=== PATIENT | male | born 1970 | race Caucasian/White ===

== ENCOUNTER 2019-08-17 13:22 | Inpatient (IN) | payer OTHER ==
[~2019-08-17] VITALS: Ht 180.3 cm; Wt 73.5 kg
[~2019-08-17 13:22] MED LIST: AMOXIL500 MG PO; CLARITIN10 MG PO; FLONASE 0.05% 121 EA NAS; NAPROSYN500 MG PO; TRAMADOL HCL50 MG PO; ZANTAC150 MG PO; ZITHROMAX Z PA250 MG PO
[2019-08-17 13:32] VITALS: BP 174/106
[2019-08-17 14:21] VITALS: BP 154/98
[2019-08-17 14:39] LABS: HEMATOCRIT 41.5 % (42.0-52.0); HEMOGLOBIN 14.3 g/dl (14.0-18.0); MEAN CELL VOLUME 92.2 fl (80.0-94.0); MEAN CORPUSCULAR HGB 31.8 pg (27.0-31.0); MEAN CORPUSCULAR HGB CONC 34.5 g/dl (33.0-37.0); PLATELET COUNT AUTOMATED 132 10*3/uL (130-400); RED CELL DISTRI WIDTH 11.9 % (0-14.5); WHITE BLOOD COUNT 5.3 10*3/uL (4.8-10.8)
[2019-08-17 14:50] LABS: ACT PARTIAL THROMBO TIME 28.8 SECONDS (20.0-32.1); INTERNATIONAL NORM RATIO 0.9 (2.0-3.5)
[2019-08-17 14:51] VITALS: BP 134/95
--- NOTE | 2019-08-17 15:03 | NUR ---
NOTIFED BY LAB PT HAS LACTIC ACID OF 4.0, CHAGO ARORA NOTIFED.
[2019-08-17 15:11] LABS: ALBUMIN 2.9 gm/dl (3.1-4.5); ALKALINE PHOSPHATASE 81 U/L (45-117); BUN 10 mg/dl (7-24); CHLORIDE 89 mmol/L (98-107); POTASSIUM 2.9 mmol/L (3.5-5.1); SGOT/AST 253 IU/L (3-35); SGPT/ALT 110 U/L (12-78); SODIUM 131 mmol/L (136-145); TOTAL PROTEIN 7.3 gm/dL (6.4-8.2)
[2019-08-17 15:14] LABS: TROPONIN I < 0.015 ng/ml (<0.045)
[2019-08-17 15:15] LABS: TOTAL CELLS COUNTED 100 #CELLS
[2019-08-17 15:16] LABS: PLATELET SUFFICIENCY NORMAL (NORMAL)
--- NOTE | 2019-08-17 18:00 | NUR ---
A 49, admitted to , under the services of NICK Pate DO with a diagnosis of copd, pneumonitis,kypokalemia. Chief complaint is cough sob. Patient arrived via bed from ER. Monitor applied. Initial assessment completed. Vital signs taken and recorded. NICK PATE DO notified of admission to the unit. Orders received. See assessment for past medical history, medications and allergies. Patient and/or family oriented to unit. [facility] visitation policy reviewed. Clothing/patient valuable form completed. MARLENA ALFREDO
--- NOTE | 2019-08-17 18:14 | NUR ---
NOTIFIED OF CONSULT NNO
[2019-08-17] MEDS ORDERED: LISINOPRIL20 MG PO (18:16)
[2019-08-17] MEDS ORDERED: DIVALPROEX SOD500 M1 PO (18:16)
[2019-08-17] MEDS ORDERED: OMEPRAZOLE MAGN20 MG PO (18:16)
[2019-08-17] MEDS ORDERED: VITAMIN D5000 UNIT PO (18:16)
[2019-08-17 20:00] VITALS: BP 168/93
--- NOTE | 2019-08-17 21:11 | NUR ---
PT REFUSED TREATMENT AND FLUTTER. PT STATED THE TREATMENTS WOULD MAKE HIM COUGH MORE CAUSING SOB. EXPLAINED TO PT THE TX. WOULD HELP TO OPEN HIS LUNGS AND DECREASE WOB. EXPLAINED COUGHING IS A NORMAL REATION. PT STILL DECLINED TREATMENT.
--- NOTE | 2019-08-17 22:26 | NUR ---
PT STATES THAT HIS RIBS ARE HURTING ESPECIALLY WHEN HE COUGHS. HE RATES THE PAIN A 8/10. PRN NORCO PO IS GIVEN AT THIS TIME. WILL CONTINUE TO MONITOR THE PATIENT. CALL LIGHT WITHIN REACH
--- NOTE | 2019-08-17 22:31 | NUR ---
PT STATES THAT HIS STOMACH IS UPSET AND IS NAUSOUS. IV ZOFRAN IS GIVEN AT THIS TIME. WILL CONTINUE TO MONITOR THE PATIENT
--- NOTE | 2019-08-17 23:17 | NUR ---
CALLED DR BARKER TO TELL HER THAT THE PATIENT IS WANTING COUGH DROPS, SHE WILL PUT THE ORDER IN NOW
--- NOTE | 2019-08-17 23:28 | NUR ---
IN TO PATIENTS ROOM TO SEE IF THE ZOFRAN HAS WORKED OR NOT. PT STATES HE IS IN PAIN FROM COUGHING SO HE IS NOT SURE IF HE IS JUST IN PAIN OR JUST NAUSEOUS. WILL CONTINUE TO MONITOR
--- NOTE | 2019-08-17 23:45 | NUR ---
PUBLIC RELATIONS DIRECTOR CALLED AND SAID THAT [facility] IS NOT AVAILABLE THAT IF THEY WANT TO RE-ORDER IT TO NO EXTENDED RELEASE I WILL BE ABLE TO CALL [facility]. CALLED DR BARKER AT THIS TIME AND RELAYED THE MESSAGE, SHE WILL PUT A NEW ORDER IN
--- NOTE | 2019-08-17 23:52 | NUR ---
CALLED [facility] PER DR MICHEL WISHES TO SEE WHAT THE DOSING WOULD BE FOR REGULAR DEPAKOTE INSTEAD OF THE EXTENDED RELEASE. HE STATES THAT THE 500 MG CAPSULE THAT WE HAVE IN THE PIXIS HERE WILL BE EQUAL TO THE 500 ER. HE STATES THAT A 750 ER = 625 REGULAR SO JUST GIVE THE 500 MC CAPSULE. WILL CALL DR BARKER NOW TO UPDATE HER
[2019-08-18] VITALS: BP 157/97
--- NOTE | 2019-08-18 01:51 | NUR ---
24 HR chart check completed.
--- NOTE | 2019-08-18 04:41 | NUR ---
Patient sleeping. Respirations relaxed and easy. Siderails up . [place] on. ELVA HUGHES
[2019-08-18 06:20] VITALS: BP 113/61
[2019-08-18 07:07] LABS: ALBUMIN 2.3 gm/dl (3.1-4.5); ALKALINE PHOSPHATASE 62 U/L (45-117); BUN 5 mg/dl (7-24); CHLORIDE 101 mmol/L (98-107); CREATININE 0.52 mg/dL (0.70-1.30); HEMATOCRIT 33.4 % (42.0-52.0); HEMOGLOBIN 11.3 g/dl (14.0-18.0); MEAN CELL VOLUME 93.6 fl (80.0-94.0); MEAN CORPUSCULAR HGB 31.7 pg (27.0-31.0); MEAN CORPUSCULAR HGB CONC 33.8 g/dl (33.0-37.0); MEAN PLATELET VOLUME 10.5 fl (9.6-12.3); PHOSPHOROUS 2.6 mg/dL (2.5-4.9); PLATELET COUNT AUTOMATED 105 10*3/uL (130-400); POTASSIUM 3.3 mmol/L (3.5-5.1); RED BLOOD COUNT 3.57 10*6/uL (4.50-5.90); RED CELL DISTRI WIDTH 12.1 % (0-14.5); SGOT/AST 165 IU/L (3-35); SGPT/ALT 76 U/L (12-78); SODIUM 136 mmol/L (136-145); TOTAL PROTEIN 6.1 gm/dL (6.4-8.2); WHITE BLOOD COUNT 5.8 10*3/uL (4.8-10.8)
[2019-08-18 08:04] LABS: TOTAL CELLS COUNTED 100 #CELLS
[2019-08-18 08:05] LABS: PLATELET SUFFICIENCY LOW (NORMAL)
--- NOTE | 2019-08-18 09:00 | NUR ---
Forest Fire Management Officer in to talk to patient. Patient states lives at home with agustin. There are few steps in the home. Physician: cait kurtz Pharmacy: mail Home health services: none Patient's level of ADLs: MINIMAL ASSIST Patient has working utilities: all working DME: cane Follow-up physician's appointment after d/c: will be made by hospitalist nurse director upon discharge Does patient want to access PORTAL?: no Discharge plan discussed with patient, he lives at home. is independent in adls and ambulation with a cane, he states he will return home when medically stable and at this time denies any home needs, case management will follow. JES KEARNS
[2019-08-18 12:00] VITALS: BP 126/83
[2019-08-18 16:00] VITALS: BP 116/82
--- NOTE | 2019-08-18 19:23 | NUR ---
NOTIFIED OF + FLU A RESULTS.
--- NOTE | 2019-08-18 19:40 | NUR ---
PATIENT MOVED TO PRIVATE ROOM AT THIS TIME DUE TO FLU A+ RESULTS.
[2019-08-18 20:00] VITALS: BP 132/98
--- NOTE | 2019-08-18 20:30 | NUR ---
PATIENT ASSESSMENT COMPLETED AT THIS TIME WITHOUT INCIDENT. PATIENT DENIES ANY CHEST PAIN/PRESSURE AT THIS TIME, SPO2 [phone]% ON ROOM AIR PATIENT PLACED ON NC 2LPM SPO2 [id number]%. WILL CONTINUE TO MONITOR. CALL LIGHT WITHIN REACH.
[2019-08-19] VITALS: BP 123/87
--- NOTE | 2019-08-19 01:53 | NUR ---
24 HOUR CHART CHECK COMPLETED
[2019-08-19 08:00] VITALS: BP 152/101
--- NOTE | 2019-08-19 09:00 | NUR ---
case management visits with patient, no voiced needs at this time, case management will follow
[2019-08-19 12:00] VITALS: BP 153/98
[2019-08-19 16:00] VITALS: BP 153/96
--- NOTE | 2019-08-19 17:25 | NUR ---
Medicated with cepacol per prn order for complaints of sore throat.
[2019-08-19 20:00] VITALS: BP 142/90
[2019-08-20] VITALS: BP 159/84
--- NOTE | 2019-08-20 02:59 | NUR ---
24 HOUR CHART CHECK COMPLETED
[2019-08-20 07:50] LABS: HEMOGLOBIN 11.7 g/dl (14.0-18.0); MEAN CELL VOLUME 94.9 fl (80.0-94.0); MEAN CORPUSCULAR HGB 31.7 pg (27.0-31.0); MEAN CORPUSCULAR HGB CONC 33.4 g/dl (33.0-37.0); MEAN PLATELET VOLUME 11.4 fl (9.6-12.3); PLATELET COUNT AUTOMATED 132 10*3/uL (130-400); RED BLOOD COUNT 3.69 10*6/uL (4.50-5.90); RED CELL DISTRI WIDTH 12.2 % (0-14.5); WHITE BLOOD COUNT 4.7 10*3/uL (4.8-10.8)
[2019-08-20 08:00] VITALS: BP 158/99
[2019-08-20 08:06] LABS: ALBUMIN 2.2 gm/dl (3.1-4.5); ALKALINE PHOSPHATASE 63 U/L (45-117); BUN 11 mg/dl (7-24); CHLORIDE 102 mmol/L (98-107); CREATININE 0.55 mg/dL (0.70-1.30); POTASSIUM 2.9 mmol/L (3.5-5.1); SGOT/AST 150 IU/L (3-35); SGPT/ALT 95 U/L (12-78); SODIUM 140 mmol/L (136-145); TOTAL PROTEIN 6.3 gm/dL (6.4-8.2)
--- NOTE | 2019-08-20 09:01 | NUR ---
Medicated with norco per prn order for complaints of pain from coughing to back and chest. Cepacol given per prn order for complaints of sore throat.
[2019-08-20 09:02] LABS: ATYPICAL LYMPHS 3 % (0-0); PLATELET SUFFICIENCY NORMAL (NORMAL); TOTAL CELLS COUNTED 100 #CELLS
--- NOTE | 2019-08-20 10:00 | NUR ---
States that medications helped relieve pain and sore throat.
[2019-08-20 12:00] VITALS: BP 162/87
--- NOTE | 2019-08-20 14:19 | NUR ---
Medicated with norco per prn order for complaints of pain due to coughing. States pain is located in back and ribs.
--- NOTE | 2019-08-20 15:10 | NUR ---
States that norco helped to relieve pain somewhat.
[2019-08-20 16:00] VITALS: BP 152/97
[2019-08-20 20:00] VITALS: BP 172/94
[2019-08-21] VITALS: BP 170/100
--- NOTE | 2019-08-21 | NUR ---
DR. RIVER NOTIFIED OF B/P OF 170/100. NEW ORDER FOR HYDRALAZINE 2MG IV X1.
--- NOTE | 2019-08-21 00:06 | NUR ---
PATIENT MEDICATED WITH HYDRALAZINE 2MG IV. WILL CONTINUE TO MONITOR.
--- NOTE | 2019-08-21 02:06 | NUR ---
PATIENT MEDICATED WITH NORCO FOR COMPLAINTS OF MUSCLE ACHES AND PAIN. WILL CONTINUE TO MONITOR. CALL LIGHT IN REACH.
[2019-08-21 02:48] VITALS: BP 162/94
[2019-08-21 03:37] VITALS: BP 130/90
--- NOTE | 2019-08-21 07:30 | NUR ---
PT RESTING IN BED AT THIS TIME. VOICES NO CONCERNS. NO S/S OF DISTRESS NOTED. OXYGEN 2L VIA NASAL CANNULA INTACT. WHITE BOARD UPDATED. CALL LIGHT WITHIN REACH. RESPS EASY AND NON LABORED
--- NOTE | 2019-08-21 07:43 | NUR ---
PT COMPLAINS OF GENERALIZED "ALL OVER" ACHING 5/10 PAIN. MEDICATED PER ORDER . WILL MONITOR FOR RELIEF. VOICES NO OTHER CONCERNS AT THIS TIME. RESTING IN BED. CALL LIGHT WITHIN REACH.
[2019-08-21 08:00] VITALS: BP 140/92
[2019-08-21 08:01] LABS: BUN 14 mg/dl (7-24); CHLORIDE 103 mmol/L (98-107); CREATININE 0.55 mg/dL (0.70-1.30); POTASSIUM 3.5 mmol/L (3.5-5.1); SODIUM 136 mmol/L (136-145)
--- NOTE | 2019-08-21 08:43 | NUR ---
NORCO EFFECTIVE PER PT
--- NOTE | 2019-08-21 11:16 | NUR ---
Shift chart check completed.
[2019-08-21 12:00] VITALS: BP 157/96
[2019-08-21] MEDS ORDERED: TAMIFLU 75MG CA75 MG PO (12:47)
[2019-08-21] MEDS ORDERED: Zestril,Prinivi40 MG PO (12:47)
[2019-08-21] MEDS ORDERED: PANTOPRAZOLE SO40 MG PO (12:47)
[2019-08-21] MEDS ORDERED: MUCINEX ER600 MG PO (12:47)
--- NOTE | 2019-08-21 13:58 | NUR ---
Discharge instructions reviewed with patient/family. Patient receptive and verbalizes understanding. Follow-up care arranged. Written instructions given to patient/family. HISSOM,YVETTE The Discharge Plan/Instructions have been completed.
[2019-08-23 00:03] LABS: ADENOVIRUS Negative (Negative); INFLUENZA B Negative (Negative); METAPNEUMOVIRUS Negative (Negative); PARAINFLUENZA 1 Negative (Negative); PARAINFLUENZA 2 Negative (Negative); PARAINFLUENZA 3 Negative (Negative); RHINOVIRUS Negative (Negative); RSV A Negative (Negative); RSV B Negative (Negative)
[2019-08-24 17:07] LABS: INFLUENZA A Positive (Negative)
== END 2019-08-21 14:00 | disposition home or self-care (01) | DRG 871 ==
LOC: ED 13:22 → EDHOLD 16:28 → 4E 16:28
PROVIDERS: Emergency Medicine; Internal Medicine; Internal Medicine Critical Care Medicine; Student in an Organized Health Care Education/Training Program; ADMIT Internal Medicine
DX: A41.9 Sepsis, unspecified organism (principal); J18.9 Pneumonia, unspecified organism; E43 Unspecified severe protein-calorie malnutrition; J44.1 Chronic obstructive pulmonary disease with (acute) exacerbation; J44.0 Chronic obstructive pulmonary disease with (acute) lower respiratory infection; R65.20 Severe sepsis without septic shock; F10.10 Alcohol abuse, uncomplicated; R73.9 Hyperglycemia, unspecified; J20.9 Acute bronchitis, unspecified; E87.6 Hypokalemia; E83.41 Hypermagnesemia; I10 Essential (primary) hypertension; E78.5 Hyperlipidemia, unspecified; D64.9 Anemia, unspecified; G43.909 Migraine, unspecified, not intractable, without status migrainosus; D69.6 Thrombocytopenia, unspecified; F17.210 Nicotine dependence, cigarettes, uncomplicated; F12.10 Cannabis abuse, uncomplicated; K21.9 Gastro-esophageal reflux disease without esophagitis; J09.X2 Influenza due to identified novel influenza A virus with other respiratory manifestations; Z71.6 Tobacco abuse counseling; Z68.22 Body mass index [BMI] 22.0-22.9, adult; Z86.73 Personal history of transient ischemic attack (TIA), and cerebral infarction without residual deficits; Z80.0 Family history of malignant neoplasm of digestive organs

== ENCOUNTER 2020-10-23 20:49 | Emergency (ER) | payer OTHER ==
[~2020-10-23] VITALS: Ht 182.8 cm; Wt 68.0 kg
[~2020-10-23 20:49] MED LIST changes: +DIVALPROEX SOD500 M1 PO; +LISINOPRIL20 MG PO; +MUCINEX ER600 MG PO; +OMEPRAZOLE MAGN20 MG PO; +PANTOPRAZOLE SO40 MG PO; +TAMIFLU 75MG CA75 MG PO; +VITAMIN D5000 UNIT PO; +Zestril,Prinivi40 MG PO
[2020-10-23] MEDS ORDERED: OMEPRAZOLE MAGN20 MG PO (21:00)
[2020-10-23] MEDS ORDERED: LISINOPRIL20 MG PO (21:00)
[2020-10-23] MEDS ORDERED: VITAMIN D3125 MC1 PO (21:00)
[2020-10-23 21:40] LABS: BASO % 1.4 % (0.0-1.0); EOS # 0.1 10*3/uL (0.0-0.4); EOS % 3.4 % (1.0-4.0); HEMATOCRIT 34.6 % (42.0-52.0); LYMPH # 1.2 10*3/uL (1.3-4.4); LYMPH % 38.9 % (27.0-41.0); MEAN CELL VOLUME 75.1 fl (80.0-94.0); MEAN CORPUSCULAR HGB 21.9 pg (27.0-31.0); MEAN CORPUSCULAR HGB CONC 29.2 g/dl (33.0-37.0); MEAN PLATELET VOLUME 10.7 fl (9.6-12.3); MONO # 0.3 10*3/uL (0.1-1.0); MONO % 11.5 % (3.0-9.0); NEUT # 1.3 10*3/uL (2.3-7.9); NEUT % 44.8 % (47.0-73.0); PLATELET COUNT AUTOMATED 127 10*3/uL (130-400); RED BLOOD COUNT 4.61 10*6/uL (4.50-5.90)
[2020-10-23 21:43] LABS: ALBUMIN 3.4 gm/dl (3.1-4.5); ALKALINE PHOSPHATASE 115 U/L (45-117); BUN 6 mg/dl (7-24); CHLORIDE 104 mmol/L (98-107); CREATININE 0.53 mg/dL (0.70-1.30); POTASSIUM 4.1 mmol/L (3.5-5.1); SGOT/AST 186 IU/L (3-35); SGPT/ALT 87 U/L (12-78); SODIUM 137 mmol/L (136-145); TOTAL PROTEIN 7.9 gm/dL (6.4-8.2)
[2020-10-23 23:23] LABS: BILIRUBIN Negative (Negative); BLOOD 2+ (Negative); CLARITY Clear (Clear); COLOR Yellow (Yellow); GLUCOSE Negative (Negative); KETONE Negative (Negative); LEUKO ESTERASE Negative (Negative); NITRITE Negative (Negative); PH 5.5 (4.5-8.0); SPECIFIC GRAVITY <= 1.005 (1.001-1.030); UROBILINOGEN 0.2 E.U./dl (0.0-1.0)
[2020-10-23 23:32] LABS: URINE AMPHETAMINES < 1000 (1000ng/ml); URINE BARBITURATES < 200 (200ng/ml); URINE BENZODIAZEPINES < 200 (200ng/ml); URINE CANNABINOIDS (THC) > 50 (50ng/ml); URINE COCAINE < 300 (300ng/ml); URINE METHADONE < 300 (300ng/ml); URINE OPIATES < 300 (300ng/ml)
[2020-10-23 23:37] LABS: URINE PHENCYCLIDINE < 25 (25ng/ml)
[2020-10-23 23:38] LABS: RBC 16-20 rbc/hpf (0-2)
== END 2020-10-24 08:28 | disposition home or self-care (01) ==
LOC: ED 20:49
PROVIDERS: Internal Medicine
DX: F10.129 Alcohol abuse with intoxication, unspecified (principal); F17.200 Nicotine dependence, unspecified, uncomplicated; Z79.899 Other long term (current) drug therapy; Y90.8 Blood alcohol level of 240 mg/100 ml or more

== ENCOUNTER 2020-12-18 16:20 | Emergency (ER) | payer OTHER ==
[~2020-12-18] VITALS: Ht 180.3 cm; Wt 74.8 kg
[~2020-12-18 16:20] MED LIST changes: +VITAMIN D3125 MC1 PO
== END 2020-12-18 18:41 | disposition home or self-care (01) ==
LOC: ED 16:20
DX: S01.01XA Laceration without foreign body of scalp, initial encounter (principal); F10.129 Alcohol abuse with intoxication, unspecified; M54.9 Dorsalgia, unspecified; F12.10 Cannabis abuse, uncomplicated; F17.200 Nicotine dependence, unspecified, uncomplicated; Z79.899 Other long term (current) drug therapy; Z86.73 Personal history of transient ischemic attack (TIA), and cerebral infarction without residual deficits; W18.30XA Fall on same level, unspecified, initial encounter; Y93.89 Activity, other specified; Y92.89 Other specified places as the place of occurrence of the external cause; Y99.9 Unspecified external cause status; Y90.9 Presence of alcohol in blood, level not specified

== ENCOUNTER 2022-10-25 06:48 | Emergency (ER) | payer OTHER ==
[~2022-10-25] VITALS: Ht 172.7 cm; Wt 56.2 kg
[2022-10-25 09:04] LABS: BASO % 0.2 % (0.0-1.0); EOS % 0.2 % (1.0-4.0); HEMATOCRIT 32.1 % (42.0-52.0); LYMPH # 1.4 10*3/uL (1.3-4.4); LYMPH % 13.6 % (27.0-41.0); MEAN CELL VOLUME 96.1 fl (80.0-94.0); MEAN CORPUSCULAR HGB 32.9 pg (27.0-31.0); MEAN CORPUSCULAR HGB CONC 34.3 g/dl (33.0-37.0); MEAN PLATELET VOLUME 9.6 fl (9.6-12.3); MONO # 0.6 10*3/uL (0.1-1.0); MONO % 5.4 % (3.0-9.0); NEUT # 8.4 10*3/uL (2.3-7.9); PLATELET COUNT AUTOMATED 128 10*3/uL (130-400); RED BLOOD COUNT 3.34 10*6/uL (4.50-5.90); RED CELL DISTRI WIDTH 15.2 % (0-14.5); WHITE BLOOD COUNT 10.6 10*3/uL (4.8-10.8)
[2022-10-25 09:24] LABS: ALKALINE PHOSPHATASE 217 U/L (46-116); BUN 6 mg/dl (9-23); CHLORIDE 102 mmol/L (98-107); ETHYL ALCOHOL 297.9 mg/dl (<3); POTASSIUM 2.9 mmol/L (3.4-5.1); SGPT/ALT 32 U/L (10-49); TOTAL PROTEIN 6.2 gm/dL (6.0-8.0)
== END 2022-10-25 12:00 | disposition home or self-care (01) ==
LOC: ED 06:48
PROVIDERS: Internal Medicine
DX: F10.129 Alcohol abuse with intoxication, unspecified (principal); M54.9 Dorsalgia, unspecified; G89.29 Other chronic pain; I10 Essential (primary) hypertension; J44.9 Chronic obstructive pulmonary disease, unspecified; F17.200 Nicotine dependence, unspecified, uncomplicated; F12.10 Cannabis abuse, uncomplicated; Y90.8 Blood alcohol level of 240 mg/100 ml or more